=== PATIENT | female | born 1970 | race Caucasian/White ===

== ENCOUNTER 2017-02-08 19:39 | Emergency (ER) | payer MEDICAID, OTHER ==
[~2017-02-08] VITALS: Ht 162.6 cm; Wt 65.8 kg
[2017-02-08 19:40] VITALS: BP_SYST 120
[2017-02-08] MEDS ORDERED: IBUPROFEN 800 MG TABLET PO ONE (20:45)
[2017-02-08 20:50] LABS: BILIRUBIN,URINE NEGATIVE (NEGATIVE); BLOOD, URINE 1+ (NEGATIVE); CLARITY/URINE SL CLOUDY (CLEAR); COLOR,URINE YELLOW (YELLOW); GLUCOSE,URINE NEGATIVE (NEGATIVE); KETONES,URINE NEGATIVE (NEGATIVE); LEUKOCYTE ESTERASE ,URINE NEGATIVE (NEGATIVE); NITRITE, URINE NEGATIVE (NEGATIVE); PH,URINE 5.5 (5.0-8.0); PROTEIN URINE NEGATIVE (NEGATIVE); UROBILINOGEN,URINE 0.2 (0.2-1.0)
[2017-02-08 21:01] VITALS: BP_SYST 120
[2017-02-08 22:33] LABS: BACTERIA,URINE MODERATE /HPF (None Seen); MUCUS,URINE 3+ /LPF (None Seen); RBC,URINE 0-3 /HPF (0-3)
== END 2017-02-08 21:01 | disposition home or self-care (01) ==
LOC: SED 19:39
DX: G89.29 Other chronic pain (principal); M54.5 Low back pain
CPT/HCPCS: 81000-TC; 81025; 87086; 99284